=== PATIENT | female | born 2000 | race Caucasian/White ===

== ENCOUNTER → 2021-12-22 | Outpatient (CLI) | payer BC, MEDICAID ==
--- NOTE | 2021-12-22 17:53 | Diagnostic Imaging Report ---
INDICATION: , 20 weeks and 1 day. TECHNIQUE: Multiple real-time grayscale images were obtained over the gravid uterus. COMPARISON: None. FINDINGS: There is a single live intrauterine gestation in breech presentation. The placenta is anterior without evidence of previa. The cervix is measured at 3.6 cm. There is no funneling or endocervical fluid. The stomach is seen. A four-chamber heart is seen. The lateral ventricle is seen. The cerebellum and cisterna magna are seen. The nose and lips are seen. The bladder is seen. Two umbilical arteries are demonstrated. The left ventricular outflow tract is seen. The cord insertion is seen. The upper spine is seen. The right ventricular outflow tract is seen. The lower spine is suboptimally visualized. The amniotic fluid index measures 15.9 cm. The kidneys are not well seen. The heart rate measures 128 BPM. Biometrical measurements are as follows: Biparietal 4.39 cm, age 19 weeks 2 days. Head circumference 16.49 cm, age 19 weeks 2 days. Abdominal circumference 15.23 cm, age 20 weeks 4 days. Femur length 3.11 cm, age 19 weeks 5 days. Sonographic estimate age: 19 weeks 5 days. Sonographic estimated date of delivery: 05/13/2022. Estimated Weight: 324 gm (+/- 48 gm). LMP percentile: 35%. heart rate: 128 beats per minute. number: 1 of 1. IMPRESSION: 1. Single live intrauterine gestation measuring at 19 weeks and 5 days which is within range of the clinical dates. 2. No anatomic abnormality is seen. The lower spine and the kidneys are not well seen. 3. Breech presentation. Dictated by: Dictated on workstation # [id number]
== END ==
LOC: RAD 10:00
PROVIDERS: ATTEND Nurse Practitioner Women's Health
DX: O32.1XX1 Maternal care for breech presentation, fetus 1 (principal); Z3A.19 19 weeks gestation of pregnancy
CPT/HCPCS: 76805

== ENCOUNTER 2022-04-18 18:53 | Inpatient (IN) | payer MEDICAID ==
[~2022-04-18] VITALS: Ht 162.6 cm; Wt 65.9 kg
[2022-04-18 19:15] VITALS: BP 126/70
[2022-04-18 19:20] VITALS: BP 126/70
[2022-04-18] MEDS ORDERED: PREN-142 PO (20:08)
[2022-04-18] MEDS ORDERED: FAMO40TA72 PO (20:08)
[2022-04-18] MEDS ORDERED: AMPICILLIN FOR IV USE 2,000 MG in NS (IVPB) 50 ML IV SCH (20:08)
[2022-04-18] MEDS ORDERED: LEVO50CA4 PO (20:08)
[2022-04-18] MEDS ORDERED: MINERAL OIL 30 ML UDC TOP PRN (20:15)
[2022-04-18] MEDS ORDERED: LACTATED RINGERS 1,000 ML IV SCH (20:15)
[2022-04-18 20:58] LABS: BASOPHILS % (AUTO) 0 % (0-10); EOSINOPHILS # (AUTO) 0.1 10^3/uL (0.0-0.3); EOSINOPHILS % (AUTO) 1 % (0-10); HEMATOCRIT 28 % (35-52); HEMOGLOBIN 9.5 g/dL (11.5-16.0); LYMPHOCYTES # (AUTO) 2.1 10^3/uL (1.0-4.0); LYMPHOCYTES % (AUTO) 20 % (12-44); MEAN CORPUSCULAR HEMOGLOBIN 28 pg (25-34); MEAN CORPUSCULAR HGB CONC 34 g/dL (32-36); MEAN CORPUSCULAR VOLUME 84 fL (80-99); MEAN PLATELET VOLUME 11.4 fL (9.0-12.2); MONOCYTES # (AUTO) 1.3 10^3/uL (0.0-1.0); MONOCYTES % (AUTO) 12 % (0-12); NEUTROPHILS # (AUTO) 7.2 10^3/uL (1.8-7.8); NEUTROPHILS % (AUTO) 67 % (42-75); PLATELET COUNT 253 10^3/uL (130-400); WHITE BLOOD COUNT 10.8 10^3/uL (4.3-11.0)
[2022-04-18 20:59] LABS: BILIRUBIN,URINE NEGATIVE (NEGATIVE); CLARITY,URINE CLEAR; COLOR,URINE YELLOW; GLUCOSE, URINE (UA) NEGATIVE (NEGATIVE); KETONES,URINE NEGATIVE (NEGATIVE); LEUKOCYTE ESTERASE ,URINE NEGATIVE (NEGATIVE); NITRITE,URINE NEGATIVE (NEGATIVE); PH,URINE 6.5 (5-9); PROTEIN,URINE NEGATIVE (NEGATIVE)
[2022-04-18 21:10] LABS: BACTERIA,URINE NEGATIVE /HPF; RBC,URINE RARE /HPF; WBC,URINE RARE /HPF
[2022-04-19] VITALS (49 sets, daily range): BP systolic 106–173; BP diastolic 53–92
[2022-04-19] MEDS: AMPICILLIN FOR IV USE 1,000 MG in NS (IVPB) 50 ML IV SCH ×4 (01:32→13:28)
[2022-04-19] MEDS: D5 LR IV SOLUTION 1,000 ML IV SCH ×3 (03:40→11:53)
--- NOTE | 2022-04-19 06:55 | History & Physical-OB/GYN ---
LAUREN SORIA 04/19/22 0655: OB - Chief Complaint & HPI Date/Time Date of Admission: Date of Admission: Apr 18, 2022 at 18:53 Date seen by a Provider: Apr 19, 2022 Time Seen by a Provider: 06:50 Chief Complaint/History OB-Reason for Admission/Chief: Induction of Labor Hx : 2 Hx Para: 0 Expected Date of Delivery: May 10, 2022 Gestational Age in Weeks: 37 Gestational Age in Days: 0 Indication for induction: medical complication (IUGR) History of Labs A+ Antibody Neg VDRL NR HBsAg NR HIV NR RI G/C Neg GBS Pos Allergies and Home Medications Allergies Coded Allergies: No Known Drug Allergies (Unverified , 04/18/22) Patient Home Medication List Home Medication List Reviewed: Yes Famotidine (Pepcid) 40 Mg Tablet, 40 MG PO NEEDED, (Reported) Entered as Reported by: CLOTILDE SPANN on 04/18/222007 Last Action: New Order Levothyroxine Sodium (Levothyroxine) 50 Mcg Capsule, 50 MCG PO DAILY, (Reported) Entered as Reported by: CLOTILDE SPANN on 04/18/222007 Last Action: New Order Vit No.124/Iron/FA ( Vitamin Tablet) 27 Mg Iron-800 Mcg Tablet, 1 EACH PO DAILY, (Reported) Entered as Reported by: CLOTILDE SPANN on 04/18/222007 Last Action: New Order OB - History Hx of Present Care: Yes Ultrasounds: Abnormal US findings Abnormal Ultrasound Findings: IUGR, last US on 04/16 Obstetrical Complications: Growth Restriction Medical Complications: Other (Hypothyroidism) Information Pre-Hospital Medication Admins: Levothyroxine, Famotidine Induced Hypertension: No Maternal Gestational Diabetes: No Hemorrhage: No Obstetrical History Hx : 2 Hx Para: 0 Hx # Term Pregnancies: 0 Hx # Pregnancies: 0 Number of Living Children: 0 Hx Termination: No Hx Total # of Abortions (Spona: 1 Hx Multiple Gestation: No Hx Ectopic : No Hx Stillbirth: No Hx Complication: No Hx Induced Hypertens: No Hx Maternal Gestational Diabet: No Hx Hemorrhage: No Delivery History Hx Blood Disorders: No Patient Past Medical History Hypothyroidism Social History/Family History Alcohol Use: Denies Use Recreational Drug Use: Yes (Delta 8) Smoking Cessation: Current every day smoker (2-5 cigarettes per day) Immunizations Influenza Vaccine Up-to-Date: No; Not Current Rubella: immune RPR/VDRL: Negative GBS Status: Positive HBsAG: Negative OB - Admission Exam Physical Exam Vitals: Vital Signs 04/18/22 04/19/22 20:00 01:30 Temp 37.1 Pulse 72 Resp 18 B/P (MAP) 114/61 (78) Pulse Ox 98 O2 Delivery Room Air HEENT: PERRLA Heart: Rhythm Normal Lungs: Clear Abdomen: Gravid Extremities: Edema Reflexes: Normal Heart Rate: 120's Accelerations: Accelerations Present Decelerations: No Decelerations Short Term Variability: Present Jail Variability: Minimal (3-5) Contractions on Admission: >10 Minutes Apart Labs Laboratory Tests Test 04/18/22 19:15 04/18/22 20:28 Range/Units Urine Color YELLOW Urine Clarity CLEAR Urine pH 6.5 5-9 Urine Specific Daniels 1.010 L 1.016-1.022 Urine Protein NEGATIVE NEGATIVE Urine Glucose (UA) NEGATIVE NEGATIVE Urine Ketones NEGATIVE NEGATIVE Urine Nitrite NEGATIVE NEGATIVE Urine Bilirubin NEGATIVE NEGATIVE Urine Urobilinogen 0.2 < = 1.0 MG/DL Urine Leukocyte Esterase NEGATIVE NEGATIVE Urine RBC (Auto) TRACE-L H NEGATIVE Urine RBC RARE /HPF Urine WBC RARE /HPF Urine Squamous Epithelial Cells 2-5 /HPF Urine Crystals NONE /LPF Urine Bacteria NEGATIVE /HPF Urine Casts NONE /LPF Urine Mucus NEGATIVE /LPF Urine Culture Indicated NO White Blood Count 10.8 4.3-11.0 10^3/uL Red Blood Count 3.39 L 3.80-5.11 10^6/uL Hemoglobin 9.5 L 11.5-16.0 g/dL Hematocrit 28 L 35-52 % Mean Corpuscular Volume 84 80-99 fL Mean Corpuscular Hemoglobin 28 25-34 pg Mean Corpuscular Hemoglobin Concent 34 32-36 g/dL Red Cell Distribution Width 13.4 10.0-14.5 % Platelet Count 253 130-400 10^3/uL Mean Platelet Volume 11.4 9.0-12.2 fL Immature Granulocyte % (Auto) 1 % Neutrophils (%) (Auto) 67 42-75 % Lymphocytes (%) (Auto) 20 12-44 % Monocytes (%) (Auto) 12 0-12 % Eosinophils (%) (Auto) 1 0-10 % Basophils (%) (Auto) 0 0-10 % Neutrophils # (Auto) 7.2 1.8-7.8 10^3/uL Lymphocytes # (Auto) 2.1 1.0-4.0 10^3/uL Monocytes # (Auto) 1.3 H 0.0-1.0 10^3/uL Eosinophils # (Auto) 0.1 0.0-0.3 10^3/uL Basophils # (Auto) 0.0 0.0-0.1 10^3/uL Immature Granulocyte # (Auto) 0.1 0.0-0.1 10^3/uL OB - Assessment/Plan/Diagnosis Assessment Assessment: induction of labor Admission Dx at 37 weeks 0 days Presents for IOL complicated by IUGR GBS Pos Otherwise uncomplicated Admission Status: Inpatient Order (span 2 midnights) Reason for Inpatient Admission: IOL at 37 weeks, complicated by IUGR and GBS Pos JUAN ALBERTO ARREGUIN DO 04/19/22 0840: Allergies and Home Medications Allergies Coded Allergies: No Known Drug Allergies (Unverified , 04/18/22) Patient Home Medication List Famotidine (Pepcid) 40 Mg Tablet, 40 MG PO NEEDED, (Reported) Entered as Reported by: CLOTILDE SPANN on 04/18/222007 Last Action: New Order Levothyroxine Sodium (Levothyroxine) 50 Mcg Capsule, 50 MCG PO DAILY, (Reported) Entered as Reported by: CLOTILDE SPANN on 04/18/222007 Last Action: New Order Vit No.124/Iron/FA ( Vitamin Tablet) 27 Mg Iron-800 Mcg Tablet, 1 EACH PO DAILY, (Reported) Entered as Reported by: CLOTILDE SPANN on 04/18/222007 Last Action: New Order Supervisory-Addendum Brief Verification & Attestation Participated in pt care: history Personally performed: exam Care discussed with: Medical Student Procedures: n/a Results interpretation: Verified all documentation Verification and Attestation of Medical Student E/M Service A medical student performed and documented this service in my presence. I reviewed and verified all information documented by the medical student and made modifications to such information, when appropriate. I personally performed the physical exam and medical decision making. Juan Alberto Arreguin Apr 19, 2022,08:40 LAUREN SORIA Apr 19, 2022 06:55 JUAN ALBERTO ARREGUIN DO Apr 19, 2022 08:40
[2022-04-19] MEDS: CATHETER FLUSH 10 ML SYR IV SCH ×3 (07:48→16:38)
[2022-04-19] MEDS ORDERED: LIDOCAINE 1% INJ 20 ML VIAL INJ ONE (08:00)
[2022-04-19] MEDS ORDERED: OXYTOCIN PRE-MIX DRIP 500 ML IV SCH ×2 (08:30→18:00)
[2022-04-19] MEDS ORDERED: LIDOCAINE 1% INJ 10 ML VIAL ONE (08:32)
[2022-04-19] MEDS ORDERED: fentaNYL 2 mcg/ml BUPIVA 0.125 100 ML ONE (08:56)
[2022-04-19] MEDS ORDERED: BUPIVACAINE 0.25% 10 ML (SENSORCAINE) VIAL ONE (09:32)
[2022-04-19] MEDS ORDERED: fentaNYL INJ 100 MCG/2 ML AMP ONE (09:32)
[2022-04-19] MEDS: fentaNYL 2 mcg/ml BUPIVA 0.125 100 ML EPI SCH ×2 (09:45→10:13)
[2022-04-19] MEDS ORDERED: ONDANSETRON 4 MG/2 ML (SDV) Z0FRAN IV PRN ×2 (09:45→10:15)
[2022-04-19] MEDS ORDERED: fentaNYL 2 mcg/ml BUPIVA 0.125 100 ML IV SCH (09:45)
[2022-04-19] MEDS ORDERED: fentaNYL INJ 100 MCG/2 ML AMP INJ ONE (09:45)
[2022-04-19] MEDS ORDERED: CATHETER FLUSH 10 ML SYR IV PRN (09:45)
[2022-04-19] MEDS ORDERED: LACTATED RINGERS 1,000 ML IV ONE (09:45)
[2022-04-19] MEDS ORDERED: NALOXONE 0.4 MG/ML 1 ML (NARCAN) VIAL IV PRN ×3 (09:45→18:00)
[2022-04-19] MEDS ORDERED: LACTATED RINGERS 1,000 ML IV SCH (10:15)
[2022-04-19] MEDS ORDERED: diphenhydrAMINE 50 MG/ML INJ (BENADRYL) IV PRN (10:15)
--- NOTE | 2022-04-19 17:50 | OB Labor & Delivery Record ---
L&D History Date of Service Date of Service: Apr 19, 2022 History Expected Date of Delivery: May 10, 2022 Gestational Age in Weeks: 37 Hx : 2 Hx Para: 0 Complications Events: Routine care (Severe IUGR) Operative Indications (Cesarea: N/A-Vaginal Delivery Intrapartal Events: None L&D Stage1 Stage One Onset of Labor - Date: Apr 19, 2022 Monitors and Tracing Monitor Mode: External Heart Rate: 110 Monitor Accelerations: Uniform Monitor Decelerations: Variable Station: -1 Press Operator Printing Variability: Average (6-10) Short Term Variability: Present Presentation: Vertex Vital Signs VS - Last 72 Hours, by Label 04/18/22 04/18/22 04/18/22 04/19/22 19:15 19:20 20:00 01:30 Temp 37.0 37.0 37.1 Pulse 84 84 72 Resp 18 18 18 B/P (MAP) 126/70 (88) 114/61 (78) Pulse Ox 98 98 98 O2 Delivery Room Air Room Air Room Air 04/19/22 04/19/22 04/19/22 04/19/22 05:35 08:30 08:45 09:00 Temp 36.9 36.3 Pulse 57 61 62 64 Resp 18 18 18 18 B/P (MAP) 120/67 (84) 129/77 (94) 156/78 (104) 122/72 (89) Pulse Ox 100 100 100 04/19/22 04/19/22 04/19/22 04/19/22 09:15 09:30 09:45 09:45 Temp 36.2 Pulse 61 67 82 Resp 18 18 18 B/P (MAP) 110/72 (85) 120/66 (84) 134/68 (90) Pulse Ox 100 100 100 04/19/22 04/19/22 04/19/22 04/19/22 09:49 09:52 09:55 10:00 Pulse 67 67 63 68 Resp 18 18 18 18 B/P (MAP) 150/67 (94) 124/73 (90) 121/71 (88) 121/71 (88) Pulse Ox 100 97 100 100 04/19/22 04/19/22 04/19/22 04/19/22 10:02 10:04 10:08 10:14 Pulse 64 57 60 61 Resp 18 18 18 18 B/P (MAP) 120/61 (80) 130/64 (86) 106/53 (70) 110/66 (81) Pulse Ox 100 100 100 99 04/19/22 04/19/22 04/19/22 04/19/22 10:15 10:30 10:45 11:00 Pulse 60 57 54 55 Resp 18 18 18 18 B/P (MAP) 110/66 (81) 116/69 (85) 109/67 (81) Pulse Ox 100 100 100 100 04/19/22 04/19/22 04/19/22 04/19/22 11:15 11:30 11:45 11:45 Temp 36.4 Pulse 55 63 54 Resp 20 20 20 B/P (MAP) 115/72 (86) 132/72 (92) Pulse Ox 100 97 98 04/19/22 04/19/22 04/19/22 04/19/22 12:00 12:15 12:30 12:45 Pulse 64 65 57 54 Resp 20 20 20 20 B/P (MAP) 119/72 (88) 128/74 (92) 128/81 (97) Pulse Ox 98 98 99 99 04/19/22 04/19/22 04/19/22 04/19/22 13:00 13:15 13:30 13:45 Pulse 53 60 58 56 Resp 20 20 20 20 B/P (MAP) 129/75 (93) 134/73 (93) 136/80 (98) Pulse Ox 99 98 99 98 O2 Delivery Non Rebreather O2 Flow Rate 10.00 04/19/22 04/19/22 04/19/22 04/19/22 14:00 14:00 14:15 14:30 Temp 36.4 Pulse 59 63 65 Resp 20 20 20 B/P (MAP) 128/74 (92) 138/82 (100) 117/74 (88) Pulse Ox 97 98 98 O2 Delivery Non Rebreather Non Rebreather Room Air O2 Flow Rate 10.00 10.00 04/19/22 04/19/22 04/19/22 04/19/22 14:45 15:00 15:15 15:30 Pulse 68 64 63 61 Resp 20 20 20 20 B/P (MAP) 119/80 (93) 139/83 (101) 133/82 (99) 133/83 (100) Pulse Ox 98 99 99 99 O2 Delivery Room Air Room Air Room Air Room Air 04/19/22 04/19/22 15:45 16:00 Temp 36.8 Pulse 65 101 Resp 20 20 B/P (MAP) 125/82 (96) 140/92 (108) Pulse Ox 98 97 O2 Delivery Room Air Room Air Rupture of Membranes Spontaneous Ruture of Membrane: No Amniotic Membrane Rupture Time: 0805 Amniotic Membrane Fluid Desc.: Clear Vaginal Bleeding Description: Normal Show Progress/Notes Patient brought in for IOL due to IUGR severe at 37 weeks. AROM performed and Pitocin augmentation started and Epidural placed. SHe progressed to complete and + 2 station. L&D Stage2 Stage Two Stage II Date: Apr 19, 2022 Monitors and Tracing Monitor Mode: Internal Heart Rate: 110 Monitor Accelerations: Uniform Monitor Decelerations: Variable Fdc Variability: Average (6-10) Short Term Variability: Present Position: Right Occiput Anterior Presentation: Vertex Cord Descript/Complications Cord Vessel Description: 3 Vessels Delivery Type Delivery Method: Spontaneous Vaginal Anterior Shoulder: Right Episiotomy/Perineal Laceration Laceraction(s)/Extensions: Yes Episiotomy Description: Vaginal Extension/lac, 1st degree Degree (describe repair) 1st degree vaginal laceration repaired using 3-0 rapide in usual fashion. Condition of Delivery 1 minute Comment: 8 5 minute Comment: 9 Notes Live female infant weight 5lbs 2 oz. Condition of Infant Condition of Infant: Living Exam: No Observed Abnormalities Resuscitation Resuscitation: N/A - Spontaneous Resp L&D Stage3 Stage Three Stage III Date: Apr 19, 2022 Pictocin Pitocin Administration mu/min: 10 Pitocin ml/hr: 10 Pitocin Administration Comment: 30 mu wide open after delivery of placetna Placenta Delivery Placenta Delivery: Spontaneous Delivery Summary Summary Estimated blood loss (mL): 300 Attending at delivery: Susanna Arreguin DO Condition of Delivery Examined: Cervix Examined, Uterus Explored Post Hemorrhage: No Condition of Mother stable Condition of (s) stable SUSANNA ARREGUIN DO Apr 19, 2022 17:50
--- NOTE | 2022-04-19 17:56 | Discharge Inst-Women's Service ---
Discharge Inst-Women's Serv Depart Medication/Instructions New, Converted or Re-Newed RX: Transmitted to Pharmacy Final Diagnosis PPD 1 NVD Problems Reviewed?: Yes Consults/Follow Up Additional Follow Up: Yes Orders/Referrals Dr. Arreguin in 6 weeks Activity Activity: Activity as Tolerated Driving Instructions: No Driving for 1 Week NO SMOKING: NO SMOKING Nothing Inside Vagina: No Douching, No [place], No Tampons Diet Discharge Diet: No Restrictions Symptoms to Report to : Bleeding Excessive, Pain Increased, Fever Over 101 Degrees F, Vaginal Bleeding Increase, Questions/Concerns For Any Problems or Questions: Contact Your Physician SUSANNA ARREGUIN DO Apr 19, 2022 17:56
[2022-04-19] MEDS ORDERED: DOCU100C37 PO (17:57)
[2022-04-19] MEDS ORDERED: IBUP-844 PO (17:57)
[2022-04-19] MEDS ORDERED: DIBU30OI TOP (17:57)
[2022-04-19] MEDS ORDERED: ACHD5005 PO (17:57)
[2022-04-19] MEDS ORDERED: BENZOCAINE/MENTHOL (DERMOPLAST) 56 ML CAN TP PRN (18:00)
[2022-04-19] MEDS ORDERED: DIBUCAINE 1% OINTMENT 28 GM TUBE TOP PRN (18:00)
[2022-04-19] MEDS ORDERED: WITCH HAZEL(TUCKS) 40 EA JAR TOP PRN (18:00)
[2022-04-19] MEDS ORDERED: TETANUS,DIPTH,PERTUSS P/F (BOOSTRIX) 0.5 ML VIAL IM ONE (18:00)
[2022-04-19] MEDS ORDERED: HYDROcodone/APAP 5 MG/325 MG (LORTAB) TAB PO PRN (18:00)
[2022-04-19] MEDS ORDERED: MEASLES,MUMPS,RUBELLA 1 EA INJ SQ ONE (18:00)
[2022-04-19] MEDS: DOCUSATE SODIUM 100 MG (COLACE) CAP PO SCH (20:40)
[2022-04-19] MEDS: IBUPROFEN 600 MG (MOTRIN) TAB PO SCH (20:40)
[2022-04-19] MEDS ORDERED: CATHETER FLUSH 10 ML SYR IV SCH (22:00)
[2022-04-19] MEDS: diphenhydrAMINE 25 MG TAB (BENADRYL) PO PRN (22:28)
[2022-04-19] MEDS: PSEUDOEPHEDRINE HCL 30 MG (SUDAFED) TAB PO PRN (22:28)
[2022-04-20] MEDS: IBUPROFEN 600 MG (MOTRIN) TAB PO SCH ×5 (03:06→23:55)
[2022-04-20 03:10] VITALS: BP 138/80
--- NOTE | 2022-04-20 05:54 | Postpartum Progress Note ---
YANGLAUREN 04/20/22 0554: Note Note Day # 1 Subjective: Patient is without complaints. Ambulating, voiding. Tolerating a regular diet without nausea or vomiting. Normal lochia. Pain is well controlled with oral pain medications. Breast and bottle feeding. Objective: Patient is standing in room at time of evaluation, no signs of distress. Physical Exam: General - Alert and oriented, no apparent distress Abdomen - Soft, appropriately tender to palpation, non-distended, fundus firm at umbilicus Extremities - no edema, negative Erich's bilaterally Assessment: PPD 1 s/p NVD Acute blood loss anemia Plan: Routine care. Encourage breast feeding. Encourage ambulation. Ferrous sulfate supplementation. Plan for discharge tomorrow. Vitals - Labs Vital Signs - I&O Vital Signs Date Time Temp Pulse Resp B/P (MAP) Pulse Ox O2 Delivery O2 Flow Rate FiO2 04/20/22 03:10 36.5 57 18 138/80 (99) 100 Room Air 04/19/22 23:19 36.7 54 18 126/76 (93) 99 Room Air 04/19/22 19:27 56 20 119/71 (87) Room Air 04/19/22 19:00 62 20 109/68 (82) Room Air 04/19/22 18:45 55 20 132/74 (93) Room Air 04/19/22 18:30 56 20 131/76 (94) Room Air 04/19/22 18:15 79 20 131/73 (92) Room Air 04/19/22 18:00 84 20 133/75 (94) Room Air 04/19/22 17:45 91 20 129/62 (84) 98 Room Air 04/19/22 17:30 95 20 98 Room Air 04/19/22 17:15 99 20 173/70 (104) 97 Room Air 04/19/22 17:00 73 20 128/76 (93) 96 Room Air 04/19/22 16:45 77 20 144/68 (93) 97 Room Air 04/19/22 16:30 67 20 147/82 (103) 98 Room Air 04/19/22 16:15 96 20 143/84 (103) 97 Room Air 04/19/22 16:00 36.8 101 20 140/92 (108) 97 Room Air 04/19/22 15:45 65 20 125/82 (96) 98 Room Air 04/19/22 15:30 61 20 133/83 (100) 99 Room Air 04/19/22 15:15 63 20 133/82 (99) 99 Room Air 04/19/22 15:00 64 20 139/83 (101) 99 Room Air 04/19/22 14:45 68 20 119/80 (93) 98 Room Air 04/19/22 14:30 65 20 117/74 (88) 98 Room Air 04/19/22 14:15 63 20 138/82 (100) 98 Non Rebreather 10.00 04/19/22 14:00 36.4 04/19/22 14:00 59 20 128/74 (92) 97 Non Rebreather 10.00 04/19/22 13:45 56 20 136/80 (98) 98 Non Rebreather 10.00 04/19/22 13:30 58 20 99 04/19/22 13:15 60 20 134/73 (93) 98 04/19/22 13:00 53 20 129/75 (93) 99 04/19/22 12:45 54 20 128/81 (97) 99 04/19/22 12:30 57 20 128/74 (92) 99 04/19/22 12:15 65 20 98 04/19/22 12:00 64 20 119/72 (88) 98 04/19/22 11:45 36.4 04/19/22 11:45 54 20 132/72 (92) 98 04/19/22 11:30 63 20 115/72 (86) 97 04/19/22 11:15 55 20 100 04/19/22 11:00 55 18 109/67 (81) 100 04/19/22 10:45 54 18 100 04/19/22 10:30 57 18 116/69 (85) 100 04/19/22 10:15 60 18 110/66 (81) 100 04/19/22 10:14 61 18 110/66 (81) 99 04/19/22 10:08 60 18 106/53 (70) 100 04/19/22 10:04 57 18 130/64 (86) 100 04/19/22 10:02 64 18 120/61 (80) 100 04/19/22 10:00 68 18 121/71 (88) 100 04/19/22 09:55 63 18 121/71 (88) 100 04/19/22 09:52 67 18 124/73 (90) 97 04/19/22 09:49 67 18 150/67 (94) 100 04/19/22 09:45 36.2 04/19/22 09:45 82 18 134/68 (90) 100 04/19/22 09:30 67 18 120/66 (84) 100 04/19/22 09:15 61 18 110/72 (85) 100 04/19/22 09:00 64 18 122/72 (89) 100 04/19/22 08:45 62 18 156/78 (104) 100 04/19/22 08:30 36.3 61 18 129/77 (94) 100 I & O 04/20/22 07:00 Intake Total 3850 ml Balance 3850 ml Labs Laboratory Tests 04/20/22 05:05: JUAN ALBERTO ARREGUIN DO 04/20/22 0719: Note Note Verification and Attestation of Medical Student E/M Service A medical student performed and documented this service in my presence. I reviewed and verified all information documented by the medical student and made modifications to such information, when appropriate. I personally performed the physical exam and medical decision making. Juan Alberto Arreguin Apr 20, 2022,07:19 LAUREN SORIA Apr 20, 2022 05:54 JUAN ALBERTO ARREGUIN DO Apr 20, 2022 07:19
[2022-04-20 06:02] LABS: BASOPHILS % (AUTO) 0 % (0-10); EOSINOPHILS # (AUTO) 0.1 10^3/uL (0.0-0.3); EOSINOPHILS % (AUTO) 0 % (0-10); HEMATOCRIT 27 % (35-52); HEMOGLOBIN 8.7 g/dL (11.5-16.0); LYMPHOCYTES # (AUTO) 2.8 10^3/uL (1.0-4.0); LYMPHOCYTES % (AUTO) 18 % (12-44); MEAN CORPUSCULAR HEMOGLOBIN 27 pg (25-34); MEAN CORPUSCULAR HGB CONC 32 g/dL (32-36); MEAN CORPUSCULAR VOLUME 85 fL (80-99); MEAN PLATELET VOLUME 11.6 fL (9.0-12.2); MONOCYTES # (AUTO) 1.3 10^3/uL (0.0-1.0); MONOCYTES % (AUTO) 8 % (0-12); NEUTROPHILS # (AUTO) 10.9 10^3/uL (1.8-7.8); NEUTROPHILS % (AUTO) 72 % (42-75); PLATELET COUNT 229 10^3/uL (130-400); WHITE BLOOD COUNT 15.1 10^3/uL (4.3-11.0)
[2022-04-20 06:46] VITALS: BP 110/66
--- NOTE | 2022-04-20 07:52 | Anesthesia-Regional Post-Op ---
Regional Patient Condition Mental Status: Alert, Oriented x3 Circulation: Same as Pre-Op Headache: Absent Sensation: Full Recovery Motor Block: Absent Post Op Complications Complications None Follow Up Care/Instructions Patient Instructions None needed. Anesthesia/Patient Condition Patient is doing well, no complaints, stable vital signs, no apparent adverse anesthesia problems. No complications reported per nursing. [place] [facility] [place] Yes VALENCIA LUBIN CRNA Apr 20, 2022 07:52
[2022-04-20 08:11] VITALS: BP 132/76
[2022-04-20] MEDS: DOCUSATE SODIUM 100 MG (COLACE) CAP PO SCH ×2 (08:11→22:28)
[2022-04-20] MEDS: PRENATAL VITAMIN 1 EA TAB PO SCH (08:11)
[2022-04-20] MEDS: FERROUS SULF 325 MG (IRON) TAB PO SCH (08:11)
[2022-04-20 12:00] VITALS: BP 116/76
[2022-04-20 16:15] VITALS: BP 111/62
[2022-04-20 22:35] VITALS: BP 136/69
[2022-04-21] MEDS: diphenhydrAMINE 25 MG TAB (BENADRYL) PO PRN (00:55)
[2022-04-21] MEDS: PSEUDOEPHEDRINE HCL 30 MG (SUDAFED) TAB PO PRN (00:55)
[2022-04-21 04:09] VITALS: BP 138/83
[2022-04-21] MEDS: IBUPROFEN 600 MG (MOTRIN) TAB PO SCH ×2 (05:49→12:19)
--- NOTE | 2022-04-21 06:55 | Postpartum Progress Note ---
Note Note Day # 2 Subjective: Patient is without complaints. Ambulating, voiding. Tolerating a regular diet without nausea or vomiting. Normal lochia. Pain is well controlled with oral pain medications. Breast feeding and bottle feeding. Objective: Patient sitting in bed at time of evaluation, no signs of distress. Physical Exam: General - Alert and oriented, no apparent distress Abdomen - Soft, appropriately tender to palpation, non-distended, fundus firm at umbilicus Extremities - no edema, negative Erich's bilaterally Assessment: PPD 2, s/p NVD Acute blood loss anemia Plan: Routine care. Encourage breast feeding. Encourage ambulation. Ferrous sulfate supplementation. Plan for discharge today. Vitals - Labs Vital Signs - I&O Vital Signs Date Time Temp Pulse Resp B/P (MAP) Pulse Ox O2 Delivery O2 Flow Rate FiO2 04/21/22 04:09 36.2 51 16 138/83 (101) 100 Room Air 04/20/22 22:35 36.5 68 18 136/69 (91) 99 Room Air 04/20/22 16:15 36.5 65 18 111/62 (78) 98 Room Air 04/20/22 12:00 36.5 64 18 116/76 (89) 99 Room Air 04/20/22 08:11 36.3 62 18 132/76 (94) 100 Room Air LAUREN SORIA Apr 21, 2022 06:55
[2022-04-21 07:48] VITALS: BP 118/80
[2022-04-21] MEDS: DOCUSATE SODIUM 100 MG (COLACE) CAP PO SCH (07:48)
[2022-04-21] MEDS: PRENATAL VITAMIN 1 EA TAB PO SCH (07:48)
[2022-04-21] MEDS: FERROUS SULF 325 MG (IRON) TAB PO SCH (07:48)
[2022-04-21 12:00] VITALS: BP 125/78
== END 2022-04-21 17:15 | disposition home or self-care (01) | DRG 806 ==
LOC: LDRP 18:53
PROVIDERS: ADMIT Obstetrics & Gynecology; ATTEND Obstetrics & Gynecology
PROC: 10E0XZZ Delivery of Products of Conception, External Approach (ICD-10-PCS; principal; 2022-04-19)
PROC: 10907ZC Drainage of Amniotic Fluid, Therapeutic from Products of Conception, Via Natural or Artificial Opening (ICD-10-PCS; 2022-04-19)
PROC: 0HQ9XZZ Repair Perineum Skin, External Approach (ICD-10-PCS; 2022-04-19)
DX: O36.5930 Maternal care for other known or suspected poor fetal growth, third trimester, not applicable or unspecified (principal); D62 Acute posthemorrhagic anemia; Z37.0 Single live birth; Z3A.37 37 weeks gestation of pregnancy; O99.284 Endocrine, nutritional and metabolic diseases complicating childbirth; E03.9 Hypothyroidism, unspecified; O99.334 Smoking (tobacco) complicating childbirth; F17.210 Nicotine dependence, cigarettes, uncomplicated; O99.824 Streptococcus B carrier state complicating childbirth; O70.0 First degree perineal laceration during delivery; O90.81 Anemia of the puerperium
CPT/HCPCS: 36415; 81000; 85025; 86780; 86850; 86900; 86901